=== PATIENT | female | born 1990 | race Two or more races ===

== ENCOUNTER 2021-04-29 23:35 | Emergency (ER) | payer SELFPAY ==
[~2021-04-29] VITALS: Ht 154.9 cm; Wt 54.4 kg
[2021-04-30 01:57] VITALS: BP 122/71
== END 2021-04-30 02:53 | disposition home or self-care (01) ==
LOC: ER 23:35
DX: J02.9 Acute pharyngitis, unspecified (principal); R59.0 Localized enlarged lymph nodes; H92.02 Otalgia, left ear; R53.83 Other fatigue

== ENCOUNTER 2025-01-22 11:30 | Emergency (ER) | payer MEDICAID ==
[~2025-01-22] VITALS: Ht 154.9 cm; Wt 59.9 kg
[2025-01-22 11:35] VITALS: TEMP 98.5
--- NOTE | 2025-01-22 11:42 | ED.PDOC ---
HPI Allergic reaction HPI Comments HPI: 34y F who presents to the ED via EMS for chief complaint of allergic reaction - pt states starting at 0600 this AM, she started to have itching and whole body rash - pt states she took Zyrtec starting at 0600 but states symptoms persisted so she came to the ED for further evaluation - pt in the ED, noted to have rash on torso, legs and face - pt otherwise denies shortness of breath or associated symptoms - pt denies any history of allergies to any medications or substances Past Medical history: denies Past Surgical history: denies Medications: denies Allergies: nkda Social History: denies ETOH, denies tobacco use, denies drug use HPI: Poor Historian. REVIEW OF SYSTEMS: CONSTITUTIONAL: Denies acute: fever, diaphoresis, chills, generalized weakness. HEAD: Denies acute: headache, photophobia Eyes: Denies acute: Double vision, vision loss, eye pain, eye discharge. EARS: Denies acute: tinnitus, hearing loss, ear discharge, ear pain, THROAT: Denies acute: sore throat, swelling, difficulty swallowing , pain with swallowing, change in voice. NECK: Denies acute: neck pain, neck swelling, stiff neck. HEART: Denies acute : chest pain, palpitations, LUNGS: Denies acute: SOB, wheezing, cough, hemoptysis ABDOMEN: Denies acute: abdominal pain, Nausea, Vomiting, diarrhea, melena , hematemesis, hematochezia SKIN: Denies acute: lesions, EXTREMITIES: Denies acute: calf pain, numbness, tingling, weakness, denies pain in extremity. Denies acute: Low back pain. Neuro: Denies acute: focal neurological deficit, motor or sensory focal neurological deficit, tremors, seizure like activity, confusion, dizziness, change in mental status, loss of bowel or bladder function, cauda equina like symptoms. : Denies acute: dysuria, hematuria, flank pain, increase in urinary frequency. PSYCH: Denies acute: hallucination, suicidal ideation, homicidal ideation. FEMALE: Denies acute: abnormal vaginal bleeding, foul odor, unusual discharge. PHYSICAL EXAM: General: ----minimal----acute distress, awake and alert. Head: normocephalic, atraumatic. Neck: supple, trachea is midline, no swelling. Throat: Normal phonation. No obstruction, no swelling, no airway compromise, no drooling, no tripoding, no erythema, no exudates Eyes:, no erythema, no purulent discharge, no proptosis, no icterus. Heart: regular rate, regular rhythm, no significant murmur appreciated. Lungs: no apparent respiratory distress, Able to speak in full sentences. No wheezing, no rhonchi, no crackles. No stridors Clear to auscultation bilaterally. Abdomen: non tender to palpation, non distended, soft, no guarding, no rebound, + bowel sounds. Neuro: Awake, Alert, oriented to name, self, situation, follows commands GCS=15. Speech is normal. Skin: no petechia, no purpura, no cyanosis, non-pale, not jaundice. Lower extremities: --no - Pitting edema no deformity, no focal swelling, no calf TTP. Makes eye contact. moves all four extremities. Face: no apparent facial droop. Ambulating in the ED independently. No nuchal rigidity, Kernig's sign, Brudzinski's sign, no meningeal signs. ED COURSE: DISCLAIMER: This medical document was created using an electronic medical record system with voice recognition software and computerized dictation system. Although this document has been carefully reviewed, there might still be some phonetic and typographical errors. Occasional wrong-word or "sound-alike" substitutions may have occurred due to the inherent limitations of voice recognition software. These areas are purely typographical due to imperfections of the software programs and do not reflect any compromise in the patient's medical care. Please read the chart carefully and recognize, using context, where these substitutions have occurred. Chief Complaint: Allergic Reaction Time Seen by MD: 11:47 Primary Care Provider: UNKNOWN Reviewed Notes: Medications, Allergies Allergies: Coded Allergies: NO KNOWN ALLERGIES (Unverified , 01/22/25) Home Meds Active Scripts Epinephrine (Anaphylaxis) (Auvi-Q) 0.1 Mg/0.1 Ml Inj, 0.1 MG IJ O PRN for 1 Day, #1 INJ Prov:JUSTINE HUNTER DO 01/22/25 Prednisone (Prednisone) 20 Mg Tab, 40 MG PO DAILY for 5 Days, #10 TAB Prov:JUSTINE HUNTER DO 01/22/25 Information Source: Patient Mode of Arrival: Ambulatory Past Medical History PAST MEDICAL HISTORY: Denies Surgical History: Denies all surgeries WAGE AND HOUR 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 Was a procedure done?: No Differential diagnosis (all) Differential Diagnosis: Anaphylaxis, Angioedema, Bronchospasm, Contact Dermatitis, Drug Reaction, Hypotension, Renal Failure, Respiratory Failure, Shock, Urticaria X-Ray, Labs, Meds, VS Vital Signs Date Time Temp Pulse Resp B/P (MAP) Pulse Ox O2 Delivery O2 Flow Rate FiO2 01/22/25 13:36 61 18 109/53 (71) 98 01/22/25 13:36 61 18 98 Room Air 01/22/25 11:35 98.5 80 16 142/66 (91) 97 98.5 Time of 1ST Reevaluation: 14:48 Reevaluation 1ST: Resolved Patient Education/Counseling: Diagnosis, Treatment Family Education/Counseling: No Family Present Comments Patient presented with the above HPI.---allergic reaction---workup was initiated. patient was found with the above mentioned diagnosis. the following medications were ordered: please refer to order lists of meds and tests obtained by myself Dr. Hunter. Patient ED course and VS have been stabilized. Patient has been reassessed in the ED and remained in a stable condition. Pertinent incidental findings were discussed with the patient and/or family. Patient/family voices understanding and is agreeable with plan. Patient has been observed in the ED adequate length of time to insure improvement/stability. Escalation of care considered: Consideration of escalation to observation or admission Patient was DISCHARGED home in a stable condition. All the reports of any imaging studies that were ordered by myself were reviewed by myself. Departure 1 Departure Time of Disposition: 14:38 Impression: Primary Impression: Allergic reaction Additional Impression: Hives Disposition: 01 HOME / SELF CARE / HOMELESS Condition: Stable Additional Instructions: Additional instructions: You MUST follow-up with your primary care/family doctor in 1 to 2 days. If you are unable to see your primary care/family doctor, please return to our emergency room for re-assessment and re-evaluation in 1 to 2 days. Return to the emergency room here in our facility or to the nearest ER [facility] if your symptoms change or worsen. CONSULTATIONS: you MUST Follow-up for consultation as soon as possible with: --motor vehicle escort driver in 1-2 days. Please call for appointment. You MUST call the consultants office yourself to make an appointment. You may need to arrange that through your insurance and/or your primary/family doctor. If you are unable to see the analysis consultant in 1 to 2 days, you must return to our emergency room (or any other ER of your choice) for re-assessment and re-evaluation. Adequate fluid hydration. Take the following [id number] medications daily for the next five days" Benadryl 25 mg one pill by mouth daily for the next five days. Pepcid 20 mg one pill by mouth daily for the next five days. I also prescribed you steroids to take daily as instructed. Below is a copy of your radiological report for follow up: e-Prescriptions Epinephrine (Anaphylaxis) (Auvi-Q) 0.1 Mg/0.1 Ml Inj 0.1 MG IJ O PRN for 1 Day, #1 INJ Prov: JUSTINE HUNTER DO 01/22/25 Prednisone (Prednisone) 20 Mg Tab 40 MG PO DAILY for 5 Days, #10 TAB Prov: JUSTINE HUNTER DO 01/22/25 Discharged With: Self Critical Care Note Critical Care Time?: Yes (55 min-critical care time only) I personally scribed for JUSTINE HUNTER DO ([email or web address]) on 01/22/25 at 11:42. Electronically submitted by Elena Singh ([employer]). I personally scribed for JUSTINE HUNTER DO ([email or web address]) on 01/22/25 at 11:48. Electronically submitted by Elena Singh ([employer]). I personally scribed for JUSTINE HUNTER DO ([email or web address]) on 6/16/25 at 19:28. Electronically submitted by Elena Singh ([email or web address]). JUSTINE HUNTER DO Jan 22, 2025 11:42
[2025-01-22] MEDS: FAMOTIDINE (10MG/ML) 2ML VL IV ONE (12:32)
[2025-01-22] MEDS: diphenhdrAMINE HCL 50 MG/1 ML VL IV ONE (12:32)
[2025-01-22] MEDS: methylPREDNISolone SOD SUCC 125 MG/2 ML VL IV ONE (12:32)
[2025-01-22 13:36] VITALS: BP 109/53; PULSE 61; RESP 18; O2SAT 98
[2025-01-22] MEDS ORDERED: EPIN0.1I11 IJ (14:48)
[2025-01-22] MEDS ORDERED: PRED20TA2 PO (14:48)
== END 2025-01-22 15:24 | disposition home or self-care (01) ==
LOC: ER 11:30
DX: L50.0 Allergic urticaria (principal); Z79.52 Long term (current) use of systemic steroids; Z79.899 Other long term (current) drug therapy
CPT/HCPCS: 96374; 96375; 99284; J1200; J2919; J3490